=== PATIENT | female | born 1955 | race African-American/Black ===

== ENCOUNTER 2022-04-08 11:59 | Emergency (ER) | payer MEDICARE, MEDICAID ==
[~2022-04-08] VITALS: Ht 175.3 cm; Wt 91.0 kg
[2022-04-08] MEDS ORDERED: IBUPROFEN 600MG TABLET PO STA (14:52)
[2022-04-08] MEDS ORDERED: MAGNESIUM/ALUMINUM HYDROXIDE/SIMETHICONE 30ML UDC PO NR (16:10)
[2022-04-08 16:54] LABS: BASOPHILS % 0.8 % (0.0-2.0); EOSINOPHILS % 1.9 % (0.0-5.0); HEMATOCRIT. 38.3 % (36.0-48.0); HEMOGLOBIN. 12.8 g/dL (12.0-16.0); LYMPHOCYTES % 40.3 % (20.0-50.0); MEAN CORPUSCULAR HEMOGLOBIN 30.2 pg (28.0-32.0); MEAN CORPUSCULAR VOLUME 90.5 fL (81.0-99.0); MEAN PLATELET VOLUME 9.1 fl (7.4-10.4); MONOCYTES % 5.6 % (2.0-8.0); NEUTROPHILS % 51.4 % (40.0-76.0); PLATELET 209 x1000/uL (130-400); RED BLOOD CELL COUNT 4.23 mill/uL (4.2-5.4); RED CELL DISTRIBUTION WIDTH 13.3 % (11.6-14.6)
[2022-04-08 17:04] LABS: CHLORIDE 105 mEq/L (98-107)
[2022-04-08] MEDS ORDERED: NAPR-681 PO (18:00)
[2022-04-08 18:29] VITALS: BP 127/84
== END 2022-04-08 18:31 | disposition home or self-care (01) ==
LOC: ER 11:59
DX: S02.85XA Fracture of orbit, unspecified, initial encounter for closed fracture (principal); S20.219A Contusion of unspecified front wall of thorax, initial encounter; S00.83XA Contusion of other part of head, initial encounter; I10 Essential (primary) hypertension; M19.90 Unspecified osteoarthritis, unspecified site; M81.0 Age-related osteoporosis without current pathological fracture; W01.0XXA Fall on same level from slipping, tripping and stumbling without subsequent striking against object, initial encounter; Y93.89 Activity, other specified; Y92.89 Other specified places as the place of occurrence of the external cause; Y99.8 Other external cause status
CPT/HCPCS: 36415; 70486; 71045; 80053; 83880; 84484; 85025; 93005; 99285

== ENCOUNTER 2024-08-13 15:50 | Emergency (ER) | payer MEDICARE, OTHER ==
[~2024-08-13] VITALS: Ht 175.3 cm; Wt 91.0 kg
[~2024-08-13 15:50] MED LIST: NAPR-681 PO
[2024-08-13 16:04] VITALS: O2SAT 100
[2024-08-13 16:06] VITALS: TEMP 36.9
[2024-08-13] MEDS ORDERED: ACET-2708 MT (19:49)
[2024-08-13 20:43] VITALS: BP 135/79; PULSE 65; RESP 18; O2SAT 100
== END 2024-08-13 20:46 | disposition home or self-care (01) ==
LOC: ER 16:02
DX: S09.90XA Unspecified injury of head, initial encounter (principal); G89.11 Acute pain due to trauma; I10 Essential (primary) hypertension; M19.90 Unspecified osteoarthritis, unspecified site; W22.8XXA Striking against or struck by other objects, initial encounter; Y93.89 Activity, other specified; Y92.89 Other specified places as the place of occurrence of the external cause; Y99.8 Other external cause status
CPT/HCPCS: 73030; 73620; 99284